=== PATIENT | male | born 1995 | race American Indian/Alaskan Native ===

== ENCOUNTER 2020-04-21 17:09 | Emergency (ER) | payer MEDICAID, SELFPAY ==
--- NOTE | 2020-04-21 19:06 | XRay Report ---
XR chest 1V ap INDICATION / CLINICAL INFORMATION: Cough. COMPARISON: None available. FINDINGS: SUPPORT DEVICES: None. HEART /PULMONARY VASCULATURE: No significant abnormality. LUNGS / PLEURA: No significant pulmonary or pleural abnormality. No pneumothorax. ADDITIONAL FINDINGS: No significant additional findings. IMPRESSION: 1. No acute findings. Signer Name: Bentley Brooks MD Signed: 04/21/2020 7:01 PM Workstation Name: [id number]
--- NOTE | 2020-04-21 20:14 | Emergency Department Report ---
ED General Adult HPI - General Chief complaint: Dyspnea/Respdistress Stated complaint: CHEST PAIN/PT STATES HAS COVID Time Seen by Provider: 04/21/20 18:20 Source: patient Mode of arrival: Ambulatory Limitations: No Limitations - History of Present Illness Initial comments: Pt is a 24 y /o aam who presents s/p pos covid 19 screening that resulted this am, pt states he works in a [employer] is required to do monthly screening. His symptoms include cough productive clear, and SOB, rated at 4/10. pt denies wheezing, no stridor , no n/v , no fever, no back pain, no fever or chills, ptd denies medical history. Symptoms are exacerbated by activity, symptoms are relieved by nothing tried. - Related Data Previous Rx's Medication Instructions Recorded Last Taken Type Acetaminophen [Acetaminophen TAB] 1,000 mg PO Q6HR PRN #30 tablet 04/21/20 Unknown Rx Azithromycin 500 mg PO DAILY #5 tablet 04/21/20 Unknown Rx Allergies Allergy/AdvReac Type Severity Reaction Status Date / Time No Known Allergies Allergy Unverified 04/21/20 17:46 ED Review of Systems ROS: Stated complaint: CHEST PAIN/PT STATES HAS COVID Other details as noted in HPI Constitutional: malaise Eyes: denies: eye pain, eye discharge, vision change ENT: congestion. denies: ear pain, throat pain Respiratory: cough, shortness of breath. denies: wheezing Cardiovascular: denies: chest pain, palpitations Endocrine: no symptoms reported Gastrointestinal: denies: abdominal pain, nausea, diarrhea Genitourinary: denies: urgency, dysuria Musculoskeletal: denies: back pain, joint swelling, arthralgia Skin: denies: rash, lesions Neurological: denies: headache, weakness, paresthesias, vertigo Psychiatric: denies: anxiety, depression Hematological/Lymphatic: as per HPI ED Past Medical Hx - Past Medical History Previous Medical History?: Yes Hx Diabetes: Yes Hx Seizures: Yes Additional medical history: Fluid around heart - Medications Home Medications: Home Medications Medication Instructions Recorded Confirmed Last Taken Type Acetaminophen [Acetaminophen TAB] 1,000 mg PO Q6HR PRN #30 tablet 04/21/20 Unknown Rx Azithromycin 500 mg PO DAILY #5 tablet 04/21/20 Unknown Rx ED Physical Exam - General Limitations: No Limitations General appearance: alert, in no apparent distress - Head Head exam: Present: atraumatic, normocephalic - Eye Eye exam: Present: normal appearance, EOMI Pupils: Present: normal accommodation - ENT ENT exam: Present: normal orophraynx, mucous membranes moist, TM's normal bilaterally, normal external ear exam - Neck Neck exam: Present: normal inspection - Respiratory Respiratory exam: Present: normal lung sounds bilaterally, chest wall tenderness (right anterior lateral chest wall tenderness to deep palpation no crepitus, no step off, no deformity. ). Absent: respiratory distress, wheezes, stridor - Cardiovascular Cardiovascular Exam: Present: regular rate, normal rhythm, normal heart sounds. Absent: systolic murmur, diastolic murmur, rubs, gallop - GI/Abdominal GI/Abdominal exam: Present: soft, normal bowel sounds. Absent: distended, tenderness, bruit, hernia - Rectal Rectal exam: Present: deferred - Extremities Exam Extremities exam: Present: normal inspection, full ROM, normal capillary refill. Absent: tenderness - Back Exam Back exam: Present: normal inspection, full ROM. Absent: tenderness, CVA tenderness (R), CVA tenderness (L) - Neurological Exam Neurological exam: Present: alert, oriented X3, CN II-XII intact, normal gait - Psychiatric Psychiatric exam: Present: normal affect, normal mood - Skin Skin exam: Present: warm, dry, intact, normal color. 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 COMPARISON: None available. FINDINGS: SUPPORT DEVICES: None. HEART /PULMONARY VASCULATURE: No significant abnormality. LUNGS / PLEURA: No significant pulmonary or pleural abnormality. No pneumothorax. ADDITIONAL FINDINGS: No significant additional findings. IMPRESSION: 1. No acute findings. Signer Name: Bentley Brooks MD Signed: 04/21/2020 6:01 PM Workstation Name: [id number] - Medical Decision Making CXR : normal no infiltrates no opacities, plan: dc to home with rx, Quarantine as directed follow up with pcp as directed, return to emergency if symptoms worsen, pt verbalizedf agreement and understanding of discharge plan. pt dc'd to home at this time, pt with nad, no sob, no n/v, no fever chills, pt appears well, well hydrated, and well nourished at this time. Critical care attestation.: If time is entered above; I have spent that time in minutes in the direct care of this critically ill patient, excluding procedure time. ED Disposition Clinical Impression: Suspected COVID-19 virus infection Disposition: DC- TO HOME OR SELFCARE Is pt being admited?: No Does the pt Need Aspirin: No Condition: Stable Instructions: Airborne Precautions, Droplet Precautions, [id number], Prevent the Spread of COVID-19 if You Are Sick - [facility] Additional Instructions: Quarantine for 7-10 days as directed by primary care doctor. Call office to set up follow up, return to emergency if symptoms worsen. Take vitamins: E, C, D, Zinc, and aspirin per day as directed. Prescriptions: Acetaminophen [Acetaminophen TAB] 1,000 mg PO Q6HR PRN #30 tablet PRN Reason: Pain fever Azithromycin 500 mg PO DAILY #5 tablet Referrals: GEOVANNI BLANCAS MD [Referring] - 3-5 Days Forms: Work/School Release Form(ED) Time of Disposition: 20:25
[2020-04-21 20:28] VITALS: BP 136/99
== END 2020-04-21 20:40 | disposition home or self-care (01) ==
LOC: ED 17:09
DX: E11.9 Type 2 diabetes mellitus without complications (principal); Z79.899 Other long term (current) drug therapy; Z86.69 Personal history of other diseases of the nervous system and sense organs; Z20.828 Contact with and (suspected) exposure to other viral communicable diseases
CPT/HCPCS: 71045

== ENCOUNTER 2020-09-02 16:57 | Emergency (ER) | payer MEDICAID, SELFPAY ==
[2020-09-02 17:05] VITALS: BP 118/87
--- NOTE | 2020-09-02 17:42 | Event Note ---
ED Screening Note Date of service: 09/02/20 Time: 17:39 ED Screening Note: 24-year-old male patient with history of hypertension, seizure disorder (on Keppra), and deep vein thrombosis (not currently anticoagulated) presents to the emergency department with complaints of "sharp" chest pain starting approximately 12 hours ago. Patient states the pain woke him up from his sleep. The pain has been constant since onset. No exacerbating or relieving factors identified. Pain is localized to the left side of his chest, nonradiating. No history of similar symptoms. VTE risk stratification: Patient states he was diagnosed with a DVT in his lower extremity as a child. Patient underwent surgery (tonsillectomy) approximately 3 months ago. Patient is an appropriate candidate for further evaluation using D-dimer per Wells' criteria for PE. General: Awake, appropriately interactive, no acute distress. Neck: Supple. Full range of motion intact. Cardiovascular: Normal peripheral perfusion. Pulmonary: Left anterolateral chest pain without reproducible tenderness. No respiratory distress. Patient is speaking normally without use of accessory muscles. Skin: No apparent rashes or lesions. Neurological: No facial asymmetry. Speech is clear. Follows commands. Patient is alert and oriented. Musculoskeletal: Moves all four extremities spontaneously with normal range of motion. Psych: Cooperative. Appropriate mood and affect. I have greeted and performed a focused rapid initial assessment of this patient. A comprehensive ED assessment and evaluation of the patient, analysis of all test results, and completion of the medical decision-making process will be conducted by additional ED providers. This initial assessment/diagnostic orders/clinical plan/treatment(s) is/are subject to change based on patients health status, clinical progression and re-assessment. Further treatment and workup at subsequent clinical provider's discretion. Patient/guardian urged not to elope from the ED as their condition may be serious if not clinically assessed and managed.
[2020-09-02 17:52] LABS: Basophils % (Auto) 0.2 % (0.0-1.8); Eosinophils # (Auto) 0.1 K/mm3 (0.0-0.4); Eosinophils % (Auto) 1.9 % (0.0-4.3); Hematocrit 46.2 % (35.5-45.6); Hemoglobin 15.6 gm/dl (11.8-15.2); Lymphocytes # (Auto) 2.3 K/mm3 (1.2-5.4); Lymphocytes % (Auto) 35.7 % (13.4-35.0); Mean Corpuscular HGB Conc 34 % (32-34); Mean Corpuscular Volume 88 fl (84-94); Monocytes # (Auto) 0.7 K/mm3 (0.0-0.8); Monocytes % (Auto) 11.2 % (0.0-7.3); Platelet Count 281 K/mm3 (140-440); Red Blood Count 5.24 M/mm3 (3.65-5.03)
[2020-09-02 18:02] LABS: INR 0.94 (0.87-1.13)
[2020-09-02 18:03] LABS: Partial Thromboplastin Time 28.3 Sec. (24.2-36.6)
[2020-09-02 19:04] LABS: Alanine Aminotransferase 28 units/L (7-56); Albumin 4.1 g/dL (3.9-5); BUN/Creatinine Ratio 10; Blood Urea Nitrogen 9 mg/dL (9-20); Calcium 8.9 mg/dL (8.4-10.2); Hemolysis Index 21
--- NOTE | 2020-09-03 09:38 | Electrocardiograph Report ---
[facility] Test Date: 2020-09-02 Test Time: 17:08:10 Pat Name: SHELBY RUSSO Department: Room: Gender: M [employer] Interviewer: JEAN CARLOS : 1995 Requested By: JANAY BELTRAN Order Number: [id number] Reading MD: Jorge Martinez Measurements Intervals [place] Rate: 77 P: 58 [place]: 142 QRS: 67 QRSD: 82 T: 39 QT: 364 QTc: 411 Interpretive Statements Sinus rhythm No previous ECG available for comparison Electronically Signed On 09-03-2020 9:37:49 EDT by Jorge Martinez
== END 2020-09-02 21:50 | disposition left against medical advice (07) ==
LOC: ED 16:57
DX: R07.89 Other chest pain (principal); Z53.21 Procedure and treatment not carried out due to patient leaving prior to being seen by health care provider
CPT/HCPCS: 36415; 80053; 83735; 84484; 85025; 85379; 85610; 85730; 93005

== ENCOUNTER 2021-02-07 21:24 | Emergency (ER) | payer OTHER ==
[2021-02-07] MEDS ORDERED: ASPIRIN 325 MG TAB PO ONE (22:33)
--- NOTE | 2021-02-07 22:36 | Event Note ---
ED Screening Note Date of service: 02/07/21 Time: 22:33 ED Screening Note: Patient is a 25-year-old -English male with a history of hypertension, seizures and coronary artery disease s/p Acute NV 6 years ago presents to the ED with complaint of acute onset persistent substernal chest pain which has been persistent and constant for for the last 5 days. Patient states that he was initially evaluated at [facility] ER and discharged 24 hours ago. Patient states that he was discharged home on a prescription of nitroglycerin tablets which she has been taking with no relief. Patient states that the pain is persistent, and worse with any inhalation or exertion and that the pain radiates to his right lateral neck and shoulder. Patient denies dizziness, syncope, palpitations, nausea and vomiting, traumatic injury or fall, heavy lifting, headache, fever, cough, chills or diaphoresis. This initial assessment/diagnostic orders/clinical plan/treatment(s) is/are subject to change based on patients health status, clinical progression and re- assessment by fellow clinical providers in the ED. Further treatment and workup at subsequent clinical providers discretion. Patient/guardian urged not to elope from the ED as their condition may be serious if not clinically assessed and managed. Initial orders include: CBC, CMP, EKG, chest x-ray, troponin, aspirin
--- NOTE | 2021-02-07 22:48 | Emergency Department Report ---
ED Chest Pain HPI - General Chief Complaint: Chest Pain Stated Complaint: CHEST PAIN Time Seen by Provider: 02/07/21 22:47 Source: patient Mode of arrival: Ambulatory Limitations: No Limitations - Related Data Previous Rx's Medication Instructions Recorded Last Taken Type Acetaminophen [Acetaminophen TAB] 1,000 mg PO Q6HR PRN #30 tablet 04/21/20 Unknown Rx Azithromycin 500 mg PO DAILY #5 tablet 04/21/20 Unknown Rx Allergies Allergy/AdvReac Type Severity Reaction Status Date / Time amoxicillin AdvReac Anaphylaxis Verified 02/07/21 22:44 diphenhydramine AdvReac Hives Verified 02/07/21 22:44 [From Benadryl] Penicillins AdvReac Anaphylaxis Verified 02/07/21 22:44 ED Review of Systems ROS: Stated complaint: CHEST PAIN Other details as noted in HPI ED Past Medical Hx - Past Medical History Hx Hypertension: Yes Hx Diabetes: Yes Hx Seizures: Yes Additional medical history: Fluid around heart - Surgical History Additional Surgical History: hernia repair. tonsillectomy. L knee. lymphectomy under L armpit - Social History Smoking Status: Never Smoker Substance Use Type: None - Medications Home Medications: Home Medications Medication Instructions Recorded Confirmed Last Taken Type Acetaminophen [Acetaminophen TAB] 1,000 mg PO Q6HR PRN #30 tablet 04/21/20 Unknown Rx Azithromycin 500 mg PO DAILY #5 tablet 04/21/20 Unknown Rx ED Physical Exam - General Limitations: No Limitations Critical care attestation.: If time is entered above; I have spent that time in minutes in the direct care of this critically ill patient, excluding procedure time. ED Disposition Condition: Stable
[2021-02-07 22:54] LABS: Basophils % (Auto) 0.3 % (0.0-1.8); Eosinophils # (Auto) 0.1 K/mm3 (0.0-0.4); Eosinophils % (Auto) 1.5 % (0.0-4.3); Hematocrit 46.5 % (35.5-45.6); Hemoglobin 15.4 gm/dl (11.8-15.2); Lymphocytes # (Auto) 1.8 K/mm3 (1.2-5.4); Lymphocytes % (Auto) 28.8 % (13.4-35.0); Mean Corpuscular HGB Conc 33 % (32-34); Mean Corpuscular Volume 87 fl (84-94); Monocytes # (Auto) 0.8 K/mm3 (0.0-0.8); Monocytes % (Auto) 12.8 % (0.0-7.3); Platelet Count 355 K/mm3 (140-440); Red Blood Count 5.38 M/mm3 (3.65-5.03); Red Cell Distribution Width 13.3 % (13.2-15.2)
[2021-02-07] MEDS ORDERED: ACETAMINOPHEN 325 MG TAB PO ONE (23:02)
[2021-02-07] MEDS ORDERED: SUCRALFATE 1 GM/10 ML ORAL LIQD PO ONE (23:02)
[2021-02-07] MEDS ORDERED: PANTOPRAZOLE 40 MG TAB PO ONE (23:02)
[2021-02-07 23:11] LABS: Alanine Aminotransferase 46 units/L (7-56); BUN/Creatinine Ratio 10; Blood Urea Nitrogen 8 mg/dL (9-20); Calcium 9.2 mg/dL (8.4-10.2); Hemolysis Index 7
--- NOTE | 2021-02-07 23:13 | XRay Report ---
CHEST 2 VIEWS INDICATION / CLINICAL INFORMATION: dyspnea, chest pain STUDY TIME: 2258 COMPARISON: 04/21/2020 FINDINGS: SUPPORT DEVICES: None. HEART / MEDIASTINUM: No significant abnormality. LUNGS / PLEURA: No significant pulmonary or pleural abnormality. No pneumothorax. ADDITIONAL FINDINGS: No significant additional findings. Signer Name: Juan Daniel Macdonald MD Signed: 02/07/2021 11:08 PM Workstation Name: [id number]
--- NOTE | 2021-02-07 23:16 | Emergency Department Report ---
ED General Adult HPI - General Chief complaint: Chest Pain Stated complaint: CHEST PAIN PUI?: No Time Seen by Provider: 02/07/21 22:47 Source: patient, RN notes reviewed, old records reviewed Mode of arrival: Ambulatory Limitations: No Limitations - History of Present Illness Initial comments: The patient was evaluated in the emergency department for symptoms described in the history of present illness. He/she was evaluated in the context of the global COVID-19 pandemic, which necessitated consideration that the patient patel ht be at risk for infection with the virus that causes COVID-19. Institutional protocols and algorithms that pertain to the evaluation of patients at risk for COVID-19 are in a state of rapid change based on information released by regulatory bodies including the CDC and federal and state organizations. These policies and algorithms were followed during the patient's care in the emergency department. Please note that these policies, procedures and recommendations changed on a rapid basis. The patient is a 25-year-old gentleman. The patient reports a history of premature coronary artery disease, diagnosed in 2014, while at [facility] in [place]. He is not sure if he had a stress test or cardiac catheterization. The patient states he does not have a local primary care doctor or senior accountant analyst here in [place], in spite of living here for the past 2 years. He reports that he goes back and forth to [place] to get his medications filled. The patient states he was at [facility] yesterday, for chest pain, which has been present since Monday. Today is Monday. He reports that upon arrival to [facility], an alert was called overhead, and he was seen by multiple providers. There is some concern from the patient's EKG that he might be having an acute coronary syndrome. The patient states he was medicated with nitroglycerin, morphine, and Toradol. He reports he was subsequently discharged. He does not have his discharge paperwork with him. The patient does not have a local senior accountant analyst or primary care doctor. He also reports a history of seizures. He presents to the ER today with a complaint of 5 days of continuous chest pain. The pain does not radiate to the back, arms or neck. The patient denies vomiting. He endorses shortness of breath. He denies leg pain or leg swelling. He denies travel, surgery, immobilization, DVT and pulmonary embolism risk factors. He reports that his father had an VT at the age of 50, and that both sisters h ave history of heart disease as well, in their 30s. -: Gradual, days(s) Location: chest Quality: aching Consistency: constant Improves with: rest Worsens with: movement - Related Data Previous Rx's Medication Instructions Recorded Last Taken Type Acetaminophen [Acetaminophen TAB] 1,000 mg PO Q6HR PRN #30 tablet 04/21/20 Unknown Rx Aspirin 325 mg PO ONCE #30 tablet 02/08/21 Unknown Rx Allergies Allergy/AdvReac Type Severity Reaction Status Date / Time amoxicillin AdvReac Anaphylaxis Verified 02/07/21 22:44 diphenhydramine AdvReac Hives Verified 02/07/21 22:44 [From Benadryl] Penicillins AdvReac Anaphylaxis Verified 02/07/21 22:44 ED Review of Systems ROS: Stated complaint: CHEST PAIN Other details as noted in HPI Constitutional: denies: fever, malaise Eyes: denies: eye discharge ENT: denies: epistaxis Respiratory: shortness of breath. denies: cough Cardiovascular: chest pain Gastrointestinal: denies: abdominal pain, hematemesis, melena, hematochezia Musculoskeletal: denies: back pain Neurological: weakness Hematological/Lymphatic: denies: easy bleeding ED Past Medical Hx - Past Medical History Hx Hypertension: Yes Hx Diabetes: Yes Hx Seizures: Yes Additional medical history: Fluid around heart - Surgical History Additional Surgical History: hernia repair. tonsillectomy. L knee. lymphectomy under L armpit - Social History Smoking Status: Never Smoker Substance Use Type: None - Medications Home Medications: Home Medications Medication Instructions Recorded Confirmed Last Taken Type Acetaminophen [Acetaminophen TAB] 1,000 mg PO Q6HR PRN #30 tablet 04/21/20 U nknown Rx Aspirin 325 mg PO ONCE #30 tablet 02/08/21 Unknown Rx ED Physical Exam - General Limitations: No Limitations General appearance: alert, in no apparent distress - Head Head exam: Present: atraumatic, normocephalic - Eye Eye exam: Present: normal appearance, EOMI. Absent: nystagmus - ENT ENT exam: Present: normal exam, normal orophraynx, mucous membranes moist, normal external ear exam - Neck Neck exam: Present: normal inspection, full ROM. Absent: tenderness, meningismus - Respiratory Respiratory exam: Present: normal lung sounds bilaterally. Absent: respiratory distress, wheezes, rales, rhonchi, stridor, decreased breath sounds - Cardiovascular Cardiovascular Exam: Present: normal rhythm, tachycardia, normal heart sounds. Absent: bradycardia, irregular rhythm, systolic murmur, diastolic murmur, rubs, gallop - GI/Abdominal GI/Abdominal exam: Present: soft. Absent: distended, tenderness, guarding, rebound, rigid, pulsatile mass - Rectal Rectal exam: Present: deferred - Extremities Exam Extremities exam: Present: normal inspection, full ROM, other (2+ pulses noted in the bilateral upper and lower extremities. There is no palpable cord. negative Homans sign. Muscular compartments are soft. The pelvis is stable.). Absent: pedal edema, calf tenderness - Back Exam Back exam: Present: normal inspection, full ROM. Absent: tenderness, CVA tenderness (R), CVA tenderness (L), paraspinal tenderness, vertebral tenderness - Neurological Exam Neurological exam: Present: alert, oriented X3, other (No facial droop. Tongue midline. Extraocular movements intact bilaterally. Facial sensation intact to light touch in V1, V2, V3 distribution bilaterally. 5 and a 5 strength in 4 extremities. Sensation intact to light touch in 4 extremities.). Absent: motor sensory deficit - Psychiatric Psychiatric exam: Present: normal affect, normal mood - Skin Skin exam: Present: warm, dry, intact, normal color. Absent: rash ED Course Vital Signs 02/07/21 02/07/21 23:06 23:23 Temperature 99.5 F 99.6 F Pulse Rate 96 H 86 Respiratory 18 14 Rate Blood Pressure 126/80 120/81 O2 Sat by Pulse 98 99 Oximetry - Reevaluation(s) Reevaluation #1: 02/07/21 23:14 Differential diagnosis, including but not limited to: GERD, gastritis, hiatal hernia, pneumonia, CAD, pulmonary embolism Assessment and plan: 25-year-old gentleman, who is currently afebrile, with reassuring vital signs, clinically sober with a GCS of 15, with an EKG that is morphologically unchanged from prior EKG from August 2020, who is not currently tachypneic or hypoxic, who denies DVT and pulmonary embolism risk factors, who is low risk by Wells criteria for pulmonary embolism, with continuous chest pain for 5 days. His articulated personal history is appreciated, as is his stated family history. However, troponin negative x1 in the context of 5 days of symptoms, and the patient's history seems inconsistent with his presentation today in the emergency room. He appears quite comfortable, resting on the stretcher, not in any respiratory distress or diaphoresis Patient's heart score is reviewed and appreciated. His stated history is reviewed and appreciated. We have requested medical records from [facility]. We will attempt to obtain medical records from [facility] [place], [place]. As the patient states he does not have a senior accountant analyst here in the [facility], I will reach out to our on-call cardiology group, to discuss an appropriate plan of care for cardiac risk ratification. Patient's troponin is negative x1 in the context of 5 days of symptoms, therefore, as per the [employer] clinical policy, acute myocardial infarction is ruled out with 1 set of troponins, given that symptoms are present for greater than 8 hours. 02/07/21 23:27 Called [facility], they refused to give us the patient's medical records. 02/08/21 00:09 The patient's tachycardia is resolved. I have reassessed the patient. He is sitting down comfortably, on a chair, in no acute distress. He is playing and texting on his cellular phone, and noted to be talking to another individual on the cell phone. Also discussed the patient's history, physical, laboratory studies and imaging studies, and articulated medical history, with cardiology on-call, Dr. Lopez Bowen We agree that based off of the objective data, unchanged EKG, negative troponin in the context of 5 days of symptoms, and patient's benign and well-appearing manner, it is reasonable to have him follow-up tomorrow with outpatient cardiology as an outpatient to complete a cardiac risk ratification and evaluation. I discussed this plan of care with the patient. He articulated understanding, and verbalized agreement. Reevaluation #2: 02/08/21 00:20 Medical records from [facility] reviewed and appreciated. Patient seen on February 06 through , at [facility]. He was found to have an unremarkable physical examination, and reproducible chest wall tenderness. He had an EKG, 2 sets of troponin, blood work, and IV Toradol. A chest x-ray was documented as being negative for acute findings. In addition, the patient's case was discussed with interventional cardiology, Dr. Parks who indicated that the patient is not an NSTEMI. In addition, it is documented the patient has been very comfortable during his entire stay. Upon review of patient's old medical records, he had negative troponins February 06, December 13, October 05. 02/08/21 01:47 The patient is resting comfortably on stretcher. He continues to be very engaged with his cellular phone. He is not in any acute distress. D-dimer was elevated, CT scan of the chest will be obtained. Awaiting CT angiogram interpretation. 02/08/21 02:26 CT scan of the chest negative for acute findings. Patient resting comfortably in stretcher. He will be discharged. Follow-up with cardiology. Return precautions are reviewed. ED Medical Decision Making - Lab Data Result diagrams: 02/07/21 22:38 02/07/21 22:38 Lab Results 02/07/21 02/07/21 Range/Units 22:38 22:38 WBC 6.4 (4.5-11.0) K/mm3 RBC 5.38 H (3.65-5.03) M/mm3 Hgb 15.4 H (11.8-15.2) gm/dl Hct 46.5 H (35.5-45.6) % MCV 87 (84-94) fl MCH 29 (28-32) pg MCHC 33 (32-34) % RDW 13.3 (13.2-15.2) % Plt Count 355 (140-440) K/mm3 Lymph % (Auto) 28.8 (13.4-35.0) % [place] % (Auto) 12.8 H (0.0-7.3) % Eos % (Auto) 1.5 (0.0-4.3) % Baso % (Auto) 0.3 (0.0-1.8) % Lymph # (Auto) 1.8 (1.2-5.4) K/mm3 [place] # (Auto) 0.8 (0.0-0.8) K/mm3 Eos # (Auto) 0.1 (0.0-0.4) K/mm3 Baso # (Auto) 0.0 (0.0-0.1) K/mm3 Seg Neutrophils % 56.6 (40.0-70.0) % Seg Neutrophils # 3.6 (1.8-7.7) K/mm3 Troponin T < 0.010 (0.00-0.029) ng/mL Vital Signs 02/07/21 02/07/21 23:06 23:23 Temperature 99.5 F 99.6 F Pulse Rate 96 H 86 Respiratory 18 14 Rate Blood Pressure 126/80 120/81 O2 Sat by Pulse 98 99 Oximetry Lab Results 02/07/21 02/07/21 Range/Units 22:38 22:38 WBC 6.4 (4.5-11.0) K/mm3 RBC 5.38 H (3.65-5.03) M/mm3 Hgb 15.4 H (11.8-15.2) gm/dl Hct 46.5 H (35.5-45.6) % MCV 87 (84-94) fl MCH 29 (28-32) pg MCHC 33 (32-34) % RDW 13.3 (13.2-15.2) % Plt Count 355 (140-440) K/mm3 Lymph % (Auto) 28.8 (13.4-35.0) % [place] % (Auto) 12.8 H (0.0-7.3) % Eos % (Auto) 1.5 (0.0-4.3) % Baso % (Auto) 0.3 (0.0-1.8) % Lymph # (Auto) 1.8 (1.2-5.4) K/mm3 [place] # (Auto) 0.8 (0.0-0.8) K/mm3 Eos # (Auto) 0.1 (0.0-0.4) K/mm3 Baso # (Auto) 0.0 (0.0-0.1) K/mm3 Seg Neutrophils % 56.6 (40.0-70.0) % Seg Neutrophils # 3.6 (1.8-7.7) K/mm3 Sodium 141 (137-145) mmol/L Potassium 3.6 (3.6-5.0) mmol/L Chloride 101.7 (98-107) mmol/L Carbon Dioxide 27 (22-30) mmol/L Anion Gap 16 mmol/L BUN 8 L (9-20) mg/dL Creatinine 0.8 (0.8-1.3) mg/dL Estimated GFR > 60 ml/min BUN/Creatinine Ratio 10 % Glucose 98 (75-100) mg/dL Calcium 9.2 (8.4-10.2) mg/dL Total Bilirubin 0.40 (0.1-1.2) mg/dL AST 26 (5-40) units/L ALT 46 (7-56) units/L Alkaline Phosphatase 204 H (35-129) units/L Troponin T < 0.010 (0.00-0.029) ng/mL Total Protein 8.0 (6.3-8.2) g/dL Albumin 4.0 (3.9-5) g/dL Albumin/Globulin Ratio 1.0 % - EKG Data -: EKG Interpreted by Id EKG shows normal: sinus rhythm Rate: tachycardia - EKG Data When compared to previous EKG there are: no significant change 02/07/21 23:10 EKG #1 is interpreted at 22: 28 Sinus rhythm, rate 103 bpm. Normal axis, normal intervals, high left ventricular voltage. This EKG is unchanged from prior EKG from August 2020. This EKG is not a STEMI. - Radiology Data Radiology results: pending, report reviewed, image reviewed CHEST 2 VIEWS INDICATION / CLINICAL INFORMATION: dyspnea, chest pain STUDY TIME: 2258 COMPARISON: 04/21/2020 FINDINGS: SUPPORT DEVICES: None. HEART / MEDIASTINUM: No significant abnormality. LUNGS / PLEURA: No significant pulmonary or pleural abnormality. No pneumothorax. ADDITIONAL FINDINGS: No significant additional findings. Signer Name: Juan Daniel Macdonald MD Signed: 02/07/2021 10:08 PM Workstation Name: [id number] CTA CHEST WITH IV CONTRAST INDICATION: acute chest pain dyspnea CONTRAST: 100 cc Omnipaque 350 IV COMPARISON: Chest x-ray tonight Three-plane MIP reconstructions were produced. All CT scans at this location are performed using CT dose reduction for ALARA by means of automated exposure control. FINDINGS: No significant axillary or chest wall abnormalities are seen. Visualized portions of the upper abdomen show mild fatty infiltration of the liver but no acute abnormalities. No pleural effusions are seen. No mediastinal or hilar masses are noted. Mediastinal afia calcifications are moderately prominent in the subcarinal area though not seen in the hilar regions. No noncalcified mediastinal masses are seen. No endobronchial lesions are obvious. No pneu mothorax or pneumomediastinum are seen. Lung pace are clear of infiltrates, nodules, or masses. There is slight focal bronchiectasis associated with scarring in the left lower lobe area Aorta shows no aneurysmal dilatation or evidence of dissection. Moderate opacification of the pulmonary arterial system was achieved. I do not see convincing evidence of pulmonary thromboembolism. IMPRESSION: No acute abnormalities are seen Signer Name: Juan Daniel Macdonald MD Signed: 02/08/2021 12:53 AM Workstation Name: [id number] Critical care attestation.: If time is entered above; I have spent that time in minutes in the direct care of this critically ill patient, excluding procedure time. ED Disposition Clinical Impression: History of chest pain Disposition: HOME / SELF CARE / HOMELESS Is pt being admited?: No Does the pt Need Aspirin: No Condition: Good Instructions: Nonspecific Chest Pain, Adult Additional Instructions: Recommend that the patient minimize/avoid consumption of Motrin, ibuprofen, Naprosyn, Aleve, alcohol, heavy and spicy foods, tobacco and smoke products. Take the aspirin on a daily basis as directed. Contact the cardiology office as listed in this discharge paperwork, first thing tomorrow morning. Let the front office staff know that we have discussed the patient's case with Dr. Bowen, and the patient is to follow-up with a senior accountant analyst tomorrow for outpatient follow-up. Please return to the emergency room right away with new pain, worsened pain, migration of pain, projectile vomiting, change in mental status, confusion, inability to tolerate liquid feeds, new, worsened or different symptoms not present on the initial emergency room evaluation. Prescriptions: Aspirin 325 mg PO ONCE #30 tablet Referrals: NANO BOWEN MD [Staff Physician] - 24 Hours [facility] [Provider Group] - 24 Hours Forms: Work/School Release Form(ED) Heart Score - HEART Score History: Slightly suspicious EKG: Non-specific Age: < 45 Risk factors: 1-2 risk factors Troponin: < normal limit HEART Score: 2 - EKG Read Time Time EKG Completed: 22:37 EKG Read Time: 22:37 - Critical Actions Critical Actions: 0-3 pts:0.9-1.7%risk of adverse cardiac event.Candidate for discharge
[2021-02-08] MEDS ORDERED: LACTATED RINGERS 1,000 ML IV ONE (00:20)
--- NOTE | 2021-02-08 01:57 | Cat Scan Report ---
CTA CHEST WITH IV CONTRAST INDICATION: acute chest pain dyspnea CONTRAST: 100 cc Omnipaque 350 IV COMPARISON: Chest x-ray tonight Three-plane MIP reconstructions were produced. All CT scans at this location are performed using CT d ose reduction for ALARA by means of automated exposure control. FINDINGS: No significant axillary or chest wall abnormalities are seen. Visualized portions of the up per abdomen show mild fatty infiltration of the liver but no acute abnormalities. No pleural effusion s are seen. No mediastinal or hilar masses are noted. Mediastinal afia calcifications are moderately prominent in the subcarinal area though not seen in the hilar regions. No noncalcified mediastinal m asses are seen. No endobronchial lesions are obvious. No pneumothorax or pneumomediastinum are seen. Lung pace are clear of infiltrates, nodules, or masses. There is slight focal bronchiectasis associ ated with scarring in the left lower lobe area Aorta shows no aneurysmal dilatation or evidence of dissection. Moderate opacification of the pulmonary arterial system was achieved. I do not see convincing evidenc e of pulmonary thromboembolism. IMPRESSION: No acute abnormalities are seen Signer Name: Juan Daniel Macdonald MD Signed: 02/08/2021 1:53 AM Workstation Name: [id number]
[2021-02-08] MEDS ORDERED: ACETAMINOPHEN 325 MG TAB PO ONE (02:42)
[2021-02-08] MEDS ORDERED: PANTOPRAZOLE 40 MG TAB PO ONE (02:42)
[2021-02-08] MEDS ORDERED: SUCRALFATE 1 GM/10 ML ORAL LIQD PO ONE (02:42)
[2021-02-08 04:47] VITALS: BP 126/78
--- NOTE | 2021-02-08 10:52 | Electrocardiograph Report ---
[facility] Test Date: 2021-02-07 Test Time: 22:28:11 Pat Name: SHELBY RUSSO Department: Room: Gender: M Category Analyst: DELMY : 1995 Requested By: VÍCTOR RODRIGUEZ Order Number: [id number] Reading MD: Rowdy Sanchez Measurements Intervals Gully Rate: 103 P: 54 RI: 127 QRS: 66 QRSD: 74 T: 9 QT: 329 QTc: 431 Interpretive Statements Sinus tachycardia Compared to ECG 09/02/2020 17:08:10 Rate is faster,otherwise,no significant change noted. Electronically Signed On 02-08-2021 10:51:55 EDT by Rowdy Sanchez
== END 2021-02-08 04:59 | disposition home or self-care (01) ==
LOC: ED 21:24
DX: R07.89 Other chest pain (principal); R56.9 Unspecified convulsions; E11.9 Type 2 diabetes mellitus without complications; I10 Essential (primary) hypertension; Z88.1 Allergy status to other antibiotic agents; Z88.0 Allergy status to penicillin; Z88.8 Allergy status to other drugs, medicaments and biological substances; Z79.899 Other long term (current) drug therapy
CPT/HCPCS: 36415; 71046; 71275; 80053; 82550; 83735; 84484; 85025; 85379; 93005; 96360; 99284; J7120; Q9967

== ENCOUNTER 2021-06-16 20:29 | Emergency (ER) | payer SELFPAY ==
--- NOTE | 2021-06-17 01:32 | XRay Report ---
CHEST 2 VIEWS INDICATION / CLINICAL INFORMATION: cough and chest pain. COMPARISON: 02/07/2021 prior chest radiograph FINDINGS: SUPPORT DEVICES: None. HEART / MEDIASTINUM: No significant abnormality. LUNGS / PLEURA: No significant pulmonary or pleural abnormality. No pneumothorax. ADDITIONAL FINDINGS: No significant additional findings. IMPRESSION: 1. No acute findings. No interval change. Signer Name: Radha Bailey MD Signed: 06/17/2021 1:28 AM Workstation Name: [id number]
--- NOTE | 2021-06-17 01:53 | Emergency Department Report ---
- General Chief Complaint: Upper Respiratory Infection Stated Complaint: +COVID Time Seen by Provider: 06/17/21 00:27 Source: patient Mode of arrival: Ambulatory Limitations: No Limitations - History of Present Illness MD Complaint: cough -: Gradual Severity: mild Quality: dull Consistency: constant Associated Symptoms: myalgias, nasal congestion, cough, chest pain Treatments Prior to Arrival: none - Related Data Previous Rx's Medication Instructions Recorded Last Taken Type RX: Acetaminophen [Acetaminophen 1,000 mg PO Q6HR PRN #30 tablet 04/21/20 Unknown Rx TAB] RX: Aspirin 325 mg PO ONCE #30 tablet 02/08/21 Unknown Rx Benzonatate [Tessalon Perles] 100 mg PO Q8HR #20 capsule 06/17/21 Unknown Rx Ketorolac [Toradol] 10 mg PO Q6H PRN #15 tablet 06/17/21 Unknown Rx RX: Albuterol Mdi (or & Nicu Only) 1 puff IH Q4-6H PRN #1 inha 06/17/21 Unknown Rx [ProAir HFA Inhaler] Allergies Allergy/AdvReac Type Severity Reaction Status Date / Time amoxicillin AdvReac Anaphylaxis Verified 02/07/21 22:44 diphenhydramine AdvReac Hives Verified 02/07/21 22:44 [From Benadryl] Penicillins AdvReac Anaphylaxis Verified 02/07/21 22:44 ED Review of Systems ROS: Stated complaint: +COVID Other details as noted in HPI Comment: All other systems reviewed and negative ED Past Medical Hx - Past Medical History Previous Medical History?: Yes Hx Hypertension: Yes Hx Diabetes: Yes Hx Seizures: Yes Additional medical history: Fluid around heart - Surgical History Past Surgical History?: Yes Additional Surgical History: hernia repair. tonsillectomy. L knee. lymphectomy under L armpit - Social History Smoking Status: Never Smoker Substance Use Type: None - Medications Home Medications: Home Medications Medication Instructions Recorded Confirmed Last Taken Type RX: Acetaminophen [Acetaminophen 1,000 mg PO Q6HR PRN #30 tablet 04/21/20 Unknown Rx TAB] RX: Aspirin 325 mg PO ONCE #30 tablet 02/08/21 Unknown Rx Benzonatate [Tessalon Perles] 100 mg PO Q8HR #20 capsule 06/17/21 Unknown Rx Ketorolac [Toradol] 10 mg PO Q6H PRN #15 tablet 06/17/21 Unknown Rx RX: Albuterol Mdi (or & Nicu Only) 1 puff IH Q4-6H PRN #1 inha 06/17/21 Unknown Rx [ProAir HFA Inhaler] ED Physical Exam - General Limitations: No Limitations General appearance: alert, in no apparent distress - Head Head exam: Present: atraumatic, normocephalic - Eye Eye exam: Present: normal appearance, PERRL, EOMI Pupils: Present: normal accommodation - ENT ENT exam: Present: normal exam, normal orophraynx, mucous membranes moist - Neck Neck exam: Present: normal inspection - Respiratory Respiratory exam: Present: normal lung sounds bilaterally. Absent: respiratory distress - Cardiovascular Cardiovascular Exam: Present: regular rate, normal rhythm. Absent: systolic murmur, diastolic murmur, rubs, gallop - GI/Abdominal GI/Abdominal exam: Present: soft, normal bowel sounds - Rectal Rectal exam: Present: deferred - Extremities Exam Extremities exam: Present: normal inspection - Back Exam Back exam: Present: normal inspection - Neurological Exam Neurological exam: Present: alert, oriented X3 - Psychiatric Psychiatric exam: Present: normal affect, normal mood - Skin Skin exam: Present: warm, dry, intact, normal color. Absent: rash ED Course Vital Signs 06/16/21 20:49 Temperature 98.4 F Pulse Rate 72 Respiratory 18 Rate Blood Pressure 151/88 O2 Sat by Pulse 100 Oximetry ED Medical Decision Making - Lab Data Result diagrams: 06/17/21 01:30 06/17/21 01:30 - Radiology Data Radiology results: report reviewed [facility] [address] [place] [address] XRay Report Signed Patient: SHELBY RUSSO MR#: [id number] 8 : 1995 Acct:[id number] Age/Sex: 25 / M ADM Date: 06/16/21 Loc: ED Attending Dr: Ordering Physician: TRI MELÉNDEZ Date of Service: 06/17/21 Procedure(s): XR chest routine 2V Accession Number(s): [id number] cc: TRI MELÉNDEZ Fluoro Time In Minutes: CHEST 2 VIEWS INDICATION / CLINICAL INFORMATION: cough and chest pain. COMPARISON: 02/07/2021 prior chest radiograph FINDINGS: SUPPORT DEVICES: None. HEART / MEDIASTINUM: No significant abnormality. LUNGS / PLEURA: No significant pulmonary or pleural abnormality. No pneumothorax. ADDITIONAL FINDINGS: No significant additional findings. IMPRESSION: 1. No acute findings. No interval change. Signer Name: Radha Bailey MD Signed: 06/17/2021 1:28 AM Workstation Name: [id number] Transcribed By: Dictated By: Radha Bailey MD Electronically Authenticated By: Radha Bailey MD Signed Date/Time: 06/17/21127 DD/ 6 TD/TT: Print - Medical Decision Making This patient presents with acute cough, most consistent with post covid cough. Differential diagnosis includes cough/congestion. Presentation not consistent with acute bacterial pneumonia, influenza, asthma, transient airway hyperresponsiveness. Presentation not consistent with chronic causes of cough (including GERD, asthma, postnasal discharge, medication side effect, CHF, lung cancer or mass). Plan: normal CXR, supportive care, reassess Critical care attestation.: If time is entered above; I have spent that time in minutes in the direct care of this critically ill patient, excluding procedure time. ED Disposition Clinical Impression: Post-acute COVID-19 syndrome, Cough Disposition: 01 HOME / SELF CARE / HOMELESS Is pt being admited?: No Does the pt Need Aspirin: No Condition: Stable Instructions: Cough, Adult, Cool Mist Vaporizer Prescriptions: RX: Albuterol Mdi (or & Nicu Only) [ProAir HFA Inhaler] 1 puff IH Q4-6H PRN #1 inha PRN Reason: Cough Benzonatate [Tessalon Perles] 100 mg PO Q8HR #20 capsule Ketorolac [Toradol] 10 mg PO Q6H PRN #15 tablet PRN Reason: Pain Referrals: PRIMARY CAREMD [Primary Care Provider] - 3-5 Days [facility] [Provider Group] - 3-5 Days
[2021-06-17 01:57] LABS: Hematocrit 48.7 % (35.5-45.6); Hemoglobin 15.6 gm/dl (11.8-15.2); Mean Corpuscular Volume 85 fl (84-94); Red Blood Count 5.71 M/mm3 (3.65-5.03)
[2021-06-17 01:58] LABS: Mean Corpuscular HGB Conc 32 % (32-34); Platelet Count 339 K/mm3 (140-440); Red Cell Distribution Width 14.6 % (13.2-15.2)
[2021-06-17 02:49] LABS: Alanine Aminotransferase 36 units/L (7-56); Albumin 4.5 g/dL (3.9-5); BUN/Creatinine Ratio 13; Blood Urea Nitrogen 12 mg/dL (9-20); Hemolysis Index 4
[2021-06-17 04:07] LABS: Basophils % (Manual) 0 % (0.0-1.8); Eosinophils % (Manual) 0 % (0.0-4.3); Total Cells Counted 100
[2021-06-17 04:08] LABS: Platelet Estimate Consistent w Auto; RBC Morphology Normal
[2021-06-17 04:18] VITALS: BP 143/70
== END 2021-06-17 04:15 | disposition home or self-care (01) ==
LOC: ED 20:29
DX: U09.9 Post COVID-19 condition, unspecified (principal); R05.9 Cough, unspecified; I10 Essential (primary) hypertension; E11.8 Type 2 diabetes mellitus with unspecified complications; Z88.0 Allergy status to penicillin; Z88.8 Allergy status to other drugs, medicaments and biological substances
CPT/HCPCS: 36415; 71046; 80053; 83735; 85007; 85025; 99283

== ENCOUNTER 2021-10-28 12:00 | Emergency (ER) | payer SELFPAY ==
[2021-10-28 12:21] VITALS: BP 124/81
--- NOTE | 2021-10-29 11:27 | Electrocardiograph Report ---
[facility] Test Date: 2021-10-28 Test Time: 12:43:03 Pat Name: SHELBY RUSSO Department: Room: Gender: M Chaplain Resident: EDMUNDO : 1995 Requested By: ED DOC Order Number: [id number] Reading MD: Jorge Martinez Measurements Intervals [place] Rate: 86 P: 65 NE: 138 QRS: 57 QRSD: 66 T: 29 QT: 342 QTc: 410 Interpretive Statements Sinus rhythm Borderline ST elevation, lateral leads Compared to ECG 02/07/2021 22:28:11 ST (T wave) deviation now present Sinus tachycardia no longer present Electronically Signed On 10-29-2021 11:26:42 EDT by Jorge Martinez
== END 2021-10-29 09:00 | disposition left against medical advice (07) ==
LOC: ED 12:00
DX: R10.9 Unspecified abdominal pain (principal); R56.9 Unspecified convulsions; Z53.21 Procedure and treatment not carried out due to patient leaving prior to being seen by health care provider
CPT/HCPCS: 93005